=== PATIENT | female | born 1935 | race Two or more races ===

== ENCOUNTER 2024-11-01 22:47 | Inpatient (IN) | payer MEDICARE, MEDICAID ==
[~2024-11-01] VITALS: Ht 165.1 cm; Wt 59.0 kg
[2024-11-01 23:36] LABS: PLATELET COUNT (AUTO) 156 K/uL (150-450); RED BLOOD CELL COUNT(AUTO) 3.35 MIL/uL (4.0-5.2); RED CELL DISTRIBUTION WIDTH 15.6 % (11.5-15.0); WHITE BLOOD COUNT (AUTO) 5.7 K/uL (4.3-11.0)
[2024-11-01] MEDS: IV NS 0.9% 1,000 ML BAG IV ONE (23:38)
[2024-11-01 23:59] LABS: INR 1.33 (0.91-1.10)
[2024-11-02] VITALS (7 sets, daily range): BP systolic 112–149; BP diastolic 48–64; TEMP 97.5–98.1; O2SAT 94–100
[2024-11-02 00:09] LABS: ASPARTATE AMINOTRANSFERASE 21 U/L (15-37); CALCIUM, SERUM 9.0 mg/dL (8.5-10.1); CREATININE 1.3 mg/dL (0.6-1.3); SODIUM SERUM 140 mmol/L (136-145); TOTAL PROTEIN, SERUM 6.0 g/dL (6.4-8.2); UREA NITROGEN, BLOOD 22 mg/dL (7-18)
[2024-11-02] MEDS ORDERED: POTASSIUM CHLORIDE 20 MEQ TAB.PRT.SR PO ONE (00:50)
[2024-11-02] MEDS: POTASSIUM CHLORIDE 20 MEQ TAB.PRT.SR PO ONE (00:54)
[2024-11-02] MEDS ORDERED: Z GUARD REMEDY 4 OZ OINT TP PRN (02:00)
[2024-11-02] MEDS ORDERED: TEMAZEPAM 15 MG CAPSULE PO PRN (02:00)
[2024-11-02] MEDS ORDERED: ONDANSETRON HCL/PF 4 MG/2 ML VIAL IVP PRN (02:00)
[2024-11-02] MEDS ORDERED: HYDROCODONE/APAP 5/325MG TABLET PO PRN (02:00)
[2024-11-02] MEDS ORDERED: MAGNESIUM HYDROXIDE 30 ML UDC PO PRN (02:00)
[2024-11-02] MEDS ORDERED: ACETAMINOPHEN 325 MG TABLET PO PRN (02:00)
[2024-11-02] MEDS ORDERED: MAG HYDROX/AL HYDROX/SIMETH 30 ML UDC PO PRN (02:00)
[2024-11-02] MEDS: IV NS 0.9% 1,000 ML IV PRN (02:53)
[2024-11-02] MEDS: PANTOPRAZOLE 40 MG TABLET.DR PO SCH (07:30)
[2024-11-02] MEDS ORDERED: PRAV20TA4 PO (08:37)
[2024-11-02] MEDS ORDERED: FOLI0.4T6 PO (08:37)
[2024-11-02] MEDS ORDERED: CHOL100062 PO (08:37)
[2024-11-02] MEDS ORDERED: MAGN400T30 PO (08:37)
[2024-11-02] MEDS ORDERED: CARV3.122 PO (08:37)
[2024-11-02] MEDS ORDERED: CALC-1276 PO (08:37)
[2024-11-02] MEDS ORDERED: APIX5TAB PO (08:37)
[2024-11-02] MEDS ORDERED: DOCU250C14 PO (08:37)
[2024-11-02] MEDS ORDERED: FERR325T28 PO (08:37)
[2024-11-02] MEDS ORDERED: LOSA25TA27 PO (08:37)
[2024-11-02] MEDS ORDERED: MEMA10TA56 PO (08:37)
[2024-11-02] MEDS ORDERED: DRON400T6 PO (08:37)
[2024-11-02] MEDS ORDERED: METH2.5T14 PO (08:37)
[2024-11-02] MEDS ORDERED: FURO-145 PO (08:37)
[2024-11-02] MEDS ORDERED: IV NS 0.9% 1,000 ML IV PRN (09:12)
[2024-11-02] MEDS: CARVEDILOL 3.125 MG TABLET PO SCH (09:30)
[2024-11-02] MEDS ORDERED: METHOTREXATE SODIUM (2.5MG) 2.5 MG TABLET PO SCH (09:30)
[2024-11-02] MEDS: DRONEDARONE HYDROCHLORIDE 400 MG TABLET PO SCH (09:30)
[2024-11-02] MEDS: MEMANTINE HCL 5 MG TABLET PO SCH (10:28)
[2024-11-02] MEDS: APIXABAN 5 MG TABLET PO SCH (10:29)
[2024-11-03] MEDS ORDERED: ATORVASTATIN 10 MG TABLET PO SCH (09:00)
[2024-11-05] MEDS ORDERED: METHOTREXATE SODIUM (2.5MG) 2.5 MG TABLET PO SCH (09:00)
== END 2024-11-02 16:27 | disposition home health service (06) | DRG 641 ==
LOC: ER 22:49 → TELE 11-02 01:17 → MED 11-02 15:42
PROVIDERS: ADMIT Nurse Practitioner Acute Care; ATTEND Nurse Practitioner Acute Care
DX: E86.0 Dehydration (principal); N17.9 Acute kidney failure, unspecified; E87.6 Hypokalemia; I48.91 Unspecified atrial fibrillation; F03.90 Unspecified dementia, unspecified severity, without behavioral disturbance, psychotic disturbance, mood disturbance, and anxiety; I50.9 Heart failure, unspecified; D64.9 Anemia, unspecified; R63.4 Abnormal weight loss; Z68.21 Body mass index [BMI] 21.0-21.9, adult
CPT/HCPCS: 36415; 70450-TC; 71045-TC; 80048-TC; 80076-TC; 82962-TC; 84484-TC; 85025-TC; 85730-TC; 92526; 92611; 93307-TC; 97116-TC; 97530-TC; A4223; G0378; J7030; J8610